=== PATIENT | female | born 1960 | race African-American/Black ===

== ENCOUNTER → 2023-07-10 | Outpatient (REF) | payer MEDICARE, OTHER | LOC: RAD 15:49 | PROVIDERS: ATTEND Internal Medicine Critical Care Medicine | DX: R05.9 Cough, unspecified (principal) | CPT/HCPCS: 71046 ==

== ENCOUNTER → 2024-09-15 | Outpatient (REF) | payer OTHER | LOC: RAD 13:20 | PROVIDERS: ATTEND Internal Medicine Critical Care Medicine | DX: R05.9 Cough, unspecified (principal) | CPT/HCPCS: 71046 ==